=== PATIENT | male | born 1945 | race Caucasian/White ===

== ENCOUNTER 2017-08-20 10:59 | Inpatient (IN) ==
[2017-08-20 14:06] LABS: Basophils # 0.1 10*3/uL (0.0-0.2); Basophils % 0.6 % (0.0-0.8); Eosinophils # 0.6 10*3/uL (0.0-0.87); Eosinophils % 5.6 % (0.00-10.9); Hematocrit 38.7 VOL% (42.0-52.0); Hemoglobin 13.1 GM/DL (14.0-18.0); Immature Granulocytes % 0.6 %; Immature Granulocytes Absolute 0.06 #; Lymphocytes # 2.4 10*3/uL (1.4-4.0); Lymphocytes % 22.3 % (21.2-54.2); Mean Corpuscular HGB Conc 33.9 GM/DL (32-36); Mean Corpuscular Hemoglobin 31 PG (27-34); Mean Corpuscular Volume 92.6 FL (87-102); Mean Platelet Volume 10.6 FL (9.6-12.0); Monocytes # 0.9 10*3/uL (0.11-0.8); Monocytes % 8.1 % (1.7-12.7); Neutrophils # 6.8 10*3/uL (1.4-7.4); Neutrophils % 62.8 % (38.7-73.9); Platelet Count 278 T/CUMM (130-400); Red Blood Count 4.18 MC/CUMM (3.8-5.5); Red Cell Distribution Width 16.5 % (9.3-17.3); White Blood Count 10.8 T/CUMM (4-12)
[2017-08-20 14:31] LABS: Albumin 3.3 G/DL (3.4-5.0); Bilirubin,Total 0.9 MG/DL (0.2-1.0); Calcium 8.4 MG/DL (8.5-10.1); Osmolality,Calculated 283.3 MOS/KG (273-304); Total Protein 7.2 G/DL (6.4-8.3)
[2017-08-20 14:32] LABS: Troponin I Only < 0.015 NG/ML (0.00-0.045)
[2017-08-20] MEDS ORDERED: ALBUTEROL/IPRATROPIUM 3 ML NEB RESP TX STA (15:34)
[2017-08-20] MEDS ORDERED: FUROSEMIDE 40 MG/4 ML VIAL IV STA (15:34)
[2017-08-20] MEDS ORDERED: methylPREDNISolone SOD SUC 125 MG/2 ML VIAL IV STA (15:34)
[2017-08-20] MEDS ORDERED: methylPREDNISolone SOD SUC 125 MG/2 ML VIAL ONE (15:37)
[2017-08-20] MEDS ORDERED: FUROSEMIDE 40 MG/4 ML VIAL ONE (15:38)
[2017-08-20] MEDS ORDERED: ALBUTEROL/IPRATROPIUM 3 ML NEB RESP TX PRN (16:20)
[2017-08-20] MEDS ORDERED: INFLUENZA VIRUS VACCINE 0.5 ML SYRINGE IM ONE (16:55)
[2017-08-20] MEDS: oxyCODONE/ACETAMINOPHEN 5-325 MG TABLET PO PRN ×2 (17:40→21:26)
[2017-08-20] MEDS: LEVOFLOXACIN INJ 750 MG in PREMIX 1 EACH IV SCH (17:41)
[2017-08-20] MEDS: ENOXAPARIN 40 MG/0.4 ML SYRINGE SUBCUT SCH (17:41)
[2017-08-20] MEDS: ALBUTEROL/IPRATROPIUM 3 ML NEB RESP TX SCH (18:40)
[2017-08-20] MEDS: AMIODARONE 200 MG TABLET PO SCH (21:25)
[2017-08-20] MEDS: METOPROLOL TARTRATE 50 MG TABLET PO SCH (21:25)
[2017-08-20] MEDS: hydrALAZINE 25 MG TABLET PO SCH (21:25)
[2017-08-20] MEDS: methylPREDNISolone SOD SUC 40 MG/1 ML VIAL IV SCH (23:44)
[2017-08-21] MEDS: ALBUTEROL/IPRATROPIUM 3 ML NEB RESP TX SCH ×4 (00:28→19:19)
[2017-08-21 05:37] LABS: Basophils % 0.3 % (0.0-0.8); Hematocrit 37.2 VOL% (42.0-52.0); Hemoglobin 12.7 GM/DL (14.0-18.0); Immature Granulocytes % 0.5 %; Immature Granulocytes Absolute 0.03 #; Lymphocytes % 15.2 % (21.2-54.2); Mean Corpuscular HGB Conc 34.1 GM/DL (32-36); Mean Corpuscular Hemoglobin 31 PG (27-34); Monocytes # 0.1 10*3/uL (0.11-0.8); Monocytes % 1.2 % (1.7-12.7); Neutrophils # 5.5 10*3/uL (1.4-7.4); Neutrophils % 82.8 % (38.7-73.9); Platelet Count 258 T/CUMM (130-400); Red Blood Count 4.09 MC/CUMM (3.8-5.5); Red Cell Distribution Width 16.1 % (9.3-17.3); White Blood Count 6.7 T/CUMM (4-12)
[2017-08-21 06:05] LABS: Albumin 2.8 G/DL (3.4-5.0); Bilirubin,Total 0.9 MG/DL (0.2-1.0); Calcium 8.3 MG/DL (8.5-10.1); Magnesium 2.7 MG/DL (1.8-2.4); Osmolality,Calculated 288.3 MOS/KG (273-304); Phosphorous 4.7 MG/DL (2.5-4.9); Potassium 4.4 MMOL/L (3.5-5.1); Total Protein 6.4 G/DL (6.4-8.3)
[2017-08-21] MEDS: METOPROLOL TARTRATE 50 MG TABLET PO SCH (08:54)
[2017-08-21] MEDS: hydrALAZINE 25 MG TABLET PO SCH ×2 (08:55→21:36)
[2017-08-21] MEDS: ISOSORBIDE MONONITRATE 30 MG TABLET PO SCH (08:55)
[2017-08-21] MEDS: FUROSEMIDE 40 MG TABLET PO SCH (08:55)
[2017-08-21] MEDS: AMIODARONE 200 MG TABLET PO SCH ×2 (08:55→21:36)
[2017-08-21] MEDS: methylPREDNISolone SOD SUC 40 MG/1 ML VIAL IV SCH ×3 (08:56→23:57)
[2017-08-21] MEDS ORDERED: LISINOPRIL 10 MG TABLET PO SCH (09:00)
[2017-08-21] MEDS ORDERED: DILTIAZEM CD 120 MG CAPSULE PO SCH (09:00)
[2017-08-21] MEDS: CLOPIDOGREL 75 MG TABLET PO SCH (11:25)
[2017-08-21] MEDS: oxyCODONE/ACETAMINOPHEN 5-325 MG TABLET PO PRN (14:35)
[2017-08-21] MEDS: ENOXAPARIN 40 MG/0.4 ML SYRINGE SUBCUT SCH (15:55)
[2017-08-21] MEDS: LEVOFLOXACIN INJ 750 MG in PREMIX 1 EACH IV SCH (15:56)
[2017-08-21] MEDS: NICOTINE 14 MG/24 HR PATCH TRANSDERM SCH (18:08)
[2017-08-21] MEDS: SPIRONOLACTONE 25 MG TABLET PO SCH (18:10)
[2017-08-21] MEDS: LISINOPRIL 10 MG TABLET PO SCH (21:36)
[2017-08-21] MEDS: METOPROLOL SUCCINATE XL 25 MG TABLET PO SCH (21:36)
[2017-08-22] MEDS: ALBUTEROL/IPRATROPIUM 3 ML NEB RESP TX SCH ×4 (00:29→20:51)
[2017-08-22 04:58] LABS: Basophils % 0.1 % (0.0-0.8); Hematocrit 34.1 VOL% (42.0-52.0); Hemoglobin 11.6 GM/DL (14.0-18.0); Immature Granulocytes % 0.6 %; Immature Granulocytes Absolute 0.09 #; Lymphocytes # 1.2 10*3/uL (1.4-4.0); Mean Corpuscular Hemoglobin 31 PG (27-34); Mean Corpuscular Volume 91.7 FL (87-102); Monocytes # 0.4 10*3/uL (0.11-0.8); Monocytes % 2.6 % (1.7-12.7); Neutrophils # 13.6 10*3/uL (1.4-7.4); Neutrophils % 88.7 % (38.7-73.9); Platelet Count 272 T/CUMM (130-400); Red Blood Count 3.72 MC/CUMM (3.8-5.5); White Blood Count 15.3 T/CUMM (4-12)
[2017-08-22 05:41] LABS: Calcium 8.4 MG/DL (8.5-10.1); Magnesium 2.6 MG/DL (1.8-2.4); Osmolality,Calculated 292.3 MOS/KG (273-304); Potassium 4.3 MMOL/L (3.5-5.1); Risk Ratio 7.65; VLDL CHOLESTEROL 27.6 MG/DL
[2017-08-22] MEDS: oxyCODONE/ACETAMINOPHEN 5-325 MG TABLET PO PRN ×2 (06:10→14:52)
[2017-08-22] MEDS: NICOTINE 14 MG/24 HR PATCH TRANSDERM SCH (08:57)
[2017-08-22] MEDS: SPIRONOLACTONE 25 MG TABLET PO SCH (08:58)
[2017-08-22] MEDS: FUROSEMIDE 40 MG TABLET PO SCH (08:58)
[2017-08-22] MEDS: AMIODARONE 200 MG TABLET PO SCH ×2 (08:58→21:00)
[2017-08-22] MEDS: METOPROLOL SUCCINATE XL 25 MG TABLET PO SCH (08:58)
[2017-08-22] MEDS: ASPIRIN EC 81 MG TABLET PO SCH (08:59)
[2017-08-22] MEDS: ISOSORBIDE MONONITRATE 30 MG TABLET PO SCH (08:59)
[2017-08-22] MEDS: methylPREDNISolone SOD SUC 40 MG/1 ML VIAL IV SCH ×2 (08:59→16:48)
[2017-08-22] MEDS: CLOPIDOGREL 75 MG TABLET PO SCH (08:59)
[2017-08-22] MEDS: hydrALAZINE 25 MG TABLET PO SCH ×2 (08:59→21:00)
[2017-08-22] MEDS: LISINOPRIL 10 MG TABLET PO SCH ×2 (09:37→20:59)
[2017-08-22] MEDS: METOPROLOL SUCCINATE XL 50 MG TABLET PO SCH ×2 (14:52→21:00)
[2017-08-22] MEDS: ATORVASTATIN 40 MG TABLET PO SCH (14:52)
[2017-08-22] MEDS: ENOXAPARIN 40 MG/0.4 ML SYRINGE SUBCUT SCH (16:46)
[2017-08-22] MEDS: LEVOFLOXACIN INJ 750 MG in PREMIX 1 EACH IV SCH (16:48)
[2017-08-23] MEDS: methylPREDNISolone SOD SUC 40 MG/1 ML VIAL IV SCH ×3 (00:28→15:29)
[2017-08-23] MEDS: ALBUTEROL/IPRATROPIUM 3 ML NEB RESP TX SCH ×3 (01:15→13:48)
[2017-08-23 05:01] LABS: Basophils % 0.1 % (0.0-0.8); Hematocrit 34.6 VOL% (42.0-52.0); Hemoglobin 11.8 GM/DL (14.0-18.0); Immature Granulocytes % 0.8 %; Immature Granulocytes Absolute 0.12 #; Lymphocytes # 1.2 10*3/uL (1.4-4.0); Lymphocytes % 7.9 % (21.2-54.2); Mean Corpuscular HGB Conc 34.1 GM/DL (32-36); Mean Corpuscular Hemoglobin 31 PG (27-34); Mean Corpuscular Volume 91.5 FL (87-102); Mean Platelet Volume 10.2 FL (9.6-12.0); Monocytes # 0.5 10*3/uL (0.11-0.8); Monocytes % 3.1 % (1.7-12.7); Neutrophils # 13.5 10*3/uL (1.4-7.4); Neutrophils % 88.1 % (38.7-73.9); Platelet Count 278 T/CUMM (130-400); Red Blood Count 3.78 MC/CUMM (3.8-5.5); Red Cell Distribution Width 16.2 % (9.3-17.3); White Blood Count 15.3 T/CUMM (4-12)
[2017-08-23 05:29] LABS: Calcium 8.4 MG/DL (8.5-10.1); Magnesium 2.9 MG/DL (1.8-2.4); Osmolality,Calculated 293.1 MOS/KG (273-304); Potassium 4.5 MMOL/L (3.5-5.1)
[2017-08-23] MEDS: oxyCODONE/ACETAMINOPHEN 5-325 MG TABLET PO PRN (05:53)
[2017-08-23] MEDS: METOPROLOL SUCCINATE XL 50 MG TABLET PO SCH (09:39)
[2017-08-23] MEDS: hydrALAZINE 25 MG TABLET PO SCH (09:39)
[2017-08-23] MEDS: FUROSEMIDE 40 MG TABLET PO SCH (09:39)
[2017-08-23] MEDS: ATORVASTATIN 40 MG TABLET PO SCH (09:39)
[2017-08-23] MEDS: CLOPIDOGREL 75 MG TABLET PO SCH (09:39)
[2017-08-23] MEDS: AMIODARONE 200 MG TABLET PO SCH (09:40)
[2017-08-23] MEDS: ASPIRIN EC 81 MG TABLET PO SCH (09:40)
[2017-08-23] MEDS: LISINOPRIL 10 MG TABLET PO SCH (09:40)
[2017-08-23] MEDS: ISOSORBIDE MONONITRATE 30 MG TABLET PO SCH (09:40)
[2017-08-23] MEDS: NICOTINE 14 MG/24 HR PATCH TRANSDERM SCH (09:42)
[2017-08-23] MEDS ORDERED: SPIRONOLACTONE 25 MG TABLET PO SCH (10:15)
[2017-08-23 12:29] VITALS: BP 117/68
[2017-08-23] MEDS: LEVOFLOXACIN INJ 750 MG in PREMIX 1 EACH IV SCH (15:30)
== END 2017-08-23 16:12 | disposition home or self-care (01) | DRG 292 ==
LOC: N.ED 10:59 → N.EDINP 16:00 → N.TELES 16:24
PROVIDERS: ADMIT Internal Medicine; ATTEND Internal Medicine

== ENCOUNTER 2017-10-10 08:13 | Inpatient (IN) ==
[2017-10-10 08:50] LABS: Basophils # 0.1 10*3/uL (0.0-0.2); Basophils % 0.3 % (0.0-0.8); Hematocrit 39.2 VOL% (42.0-52.0); Hemoglobin 13.3 GM/DL (14.0-18.0); Immature Granulocytes % 0.4 %; Immature Granulocytes Absolute 0.07 #; Lymphocytes # 1.5 10*3/uL (1.4-4.0); Lymphocytes % 8.2 % (21.2-54.2); Mean Corpuscular HGB Conc 33.9 GM/DL (32-36); Mean Corpuscular Hemoglobin 32 PG (27-34); Mean Corpuscular Volume 93.8 FL (87-102); Mean Platelet Volume 9.9 FL (9.6-12.0); Monocytes # 1.2 10*3/uL (0.11-0.8); Monocytes % 6.4 % (1.7-12.7); Neutrophils # 15.2 10*3/uL (1.4-7.4); Neutrophils % 84.7 % (38.7-73.9); Platelet Count 383 T/CUMM (130-400); Red Blood Count 4.18 MC/CUMM (3.8-5.5); Red Cell Distribution Width 17.2 % (9.3-17.3); White Blood Count 17.9 T/CUMM (4-12)
[2017-10-10 08:56] LABS: PT Patient Result 10.9 SECS
[2017-10-10 09:13] LABS: Albumin 3.4 G/DL (3.4-5.0); Bilirubin,Total 1.2 MG/DL (0.2-1.0); Calcium 9.2 MG/DL (8.5-10.1); Osmolality,Calculated 281.4 MOS/KG (273-304); Potassium 4.1 MMOL/L (3.5-5.1); Total Protein 7.8 G/DL (6.4-8.3)
[2017-10-10] MEDS ORDERED: ceFAZolin 1,000 MG in SYRINGE 1 EACH IV ONE (09:24)
[2017-10-10] MEDS ORDERED: ceFAZolin 1,000 MG VIAL ONE (09:41)
[2017-10-10] MEDS ORDERED: MORPHINE 2 MG/1 ML SYRINGE IV PRN (11:04)
[2017-10-10] MEDS ORDERED: MIDAZOLAM 2 MG/2 ML VIAL ONE (11:49)
[2017-10-10] MEDS ORDERED: PROPOFOL 200 MG/20 ML VIAL IV ONE (11:50)
[2017-10-10] MEDS ORDERED: fentaNYL 100 MCG/2 ML VIAL ONE (11:50)
[2017-10-10] MEDS ORDERED: SODIUM CHLORIDE 0.9% 1,000 ML IV ONE (11:50)
[2017-10-10] MEDS: MORPHINE 2 MG/1 ML SYRINGE IV PRN ×3 (13:23→22:00)
[2017-10-10] MEDS: LEVOFLOXACIN INJ 750 MG in PREMIX 1 EACH IV SCH (18:10)
[2017-10-10] MEDS: NICOTINE 21 MG/24 HR PATCH TRANSDERM SCH (18:16)
[2017-10-10] MEDS: ALBUTEROL/IPRATROPIUM 3 ML NEB RESP TX SCH ×2 (20:32→23:15)
[2017-10-10] MEDS: LISINOPRIL 10 MG TABLET PO SCH (21:35)
[2017-10-10] MEDS: METOPROLOL SUCCINATE XL 50 MG TABLET PO SCH (21:35)
[2017-10-10] MEDS: AMIODARONE 200 MG TABLET PO SCH (21:35)
[2017-10-10] MEDS: hydrALAZINE 25 MG TABLET PO SCH (21:35)
[2017-10-10] MEDS ORDERED: TEMAZEPAM 15 MG CAPSULE PO ONE (22:00)
[2017-10-10 22:42] LABS: Apearance,Urine Slightly Hazy (Clear); Bilirubin,Urine Negative (Negative); Blood, Urine Negative (Negative); Glucose,Urine (UA) Negative (Negative); Ketones,Urine Negative (Negative); Mucus,Urine Occasional /LPF (Occasional); Nitrite,Urine Negative (Negative); Protein,Urine 30 MG/DL; RBC,Urine 1 /HPF (0-4); Urine Color Amber (Yellow); Urine Specific Gravity 1.025 (1.001-1.035); WBC,Urine 1 /HPF (0-6)
[2017-10-11] MEDS: MORPHINE 2 MG/1 ML SYRINGE IV PRN ×4 (01:23→21:26)
[2017-10-11] MEDS: ALBUTEROL/IPRATROPIUM 3 ML NEB RESP TX SCH ×6 (03:50→23:26)
[2017-10-11 05:19] LABS: Basophils % 0.2 % (0.0-0.8); Eosinophils # 0.2 10*3/uL (0.0-0.87); Eosinophils % 1.1 % (0.00-10.9); Hematocrit 31.9 VOL% (42.0-52.0); Hemoglobin 10.4 GM/DL (14.0-18.0); Immature Granulocytes % 0.6 %; Immature Granulocytes Absolute 0.09 #; Lymphocytes # 2.8 10*3/uL (1.4-4.0); Lymphocytes % 19.8 % (21.2-54.2); Mean Corpuscular HGB Conc 32.6 GM/DL (32-36); Mean Corpuscular Hemoglobin 31 PG (27-34); Mean Corpuscular Volume 96.4 FL (87-102); Mean Platelet Volume 10.3 FL (9.6-12.0); Monocytes # 1.3 10*3/uL (0.11-0.8); Monocytes % 9.5 % (1.7-12.7); Neutrophils # 9.7 10*3/uL (1.4-7.4); Neutrophils % 68.8 % (38.7-73.9); Platelet Count 251 T/CUMM (130-400); Red Blood Count 3.31 MC/CUMM (3.8-5.5); Red Cell Distribution Width 16.8 % (9.3-17.3); White Blood Count 14.1 T/CUMM (4-12)
[2017-10-11 05:54] LABS: Osmolality,Calculated 282.1 MOS/KG (273-304); Potassium 3.8 MMOL/L (3.5-5.1)
[2017-10-11] MEDS ORDERED: predniSONE 50 MG TABLET PO SCH (09:00)
[2017-10-11] MEDS: FUROSEMIDE 40 MG TABLET PO SCH (09:27)
[2017-10-11] MEDS: NICOTINE 21 MG/24 HR PATCH TRANSDERM SCH (09:27)
[2017-10-11] MEDS: ISOSORBIDE MONONITRATE 30 MG TABLET PO SCH (09:28)
[2017-10-11] MEDS: ASPIRIN EC 81 MG TABLET PO SCH (09:28)
[2017-10-11] MEDS: METOPROLOL SUCCINATE XL 50 MG TABLET PO SCH ×2 (09:28→21:21)
[2017-10-11] MEDS: ATORVASTATIN 40 MG TABLET PO SCH (09:28)
[2017-10-11] MEDS: hydrALAZINE 25 MG TABLET PO SCH ×2 (09:28→21:21)
[2017-10-11] MEDS: CLOPIDOGREL 75 MG TABLET PO SCH (09:28)
[2017-10-11] MEDS: LISINOPRIL 10 MG TABLET PO SCH ×2 (09:28→21:21)
[2017-10-11] MEDS: SPIRONOLACTONE 25 MG TABLET PO SCH (09:28)
[2017-10-11] MEDS: AMIODARONE 200 MG TABLET PO SCH ×2 (09:28→21:21)
[2017-10-11] MEDS ORDERED: AMINOPHYLLINE 250 MG in SODIUM CHLORIDE 0.9% 100 ML IV ONE (12:41)
[2017-10-11] MEDS: MONTELUKAST 10 MG TABLET PO SCH (12:59)
[2017-10-11] MEDS: AMINOPHYLLINE 500 MG in SODIUM CHLORIDE 0.9% 480 ML IV SCH (16:33)
[2017-10-11] MEDS: methylPREDNISolone SOD SUC 40 MG/1 ML VIAL IV SCH (16:33)
[2017-10-11] MEDS: LEVOFLOXACIN INJ 750 MG in PREMIX 1 EACH IV SCH (18:05)
[2017-10-12] MEDS: ALBUTEROL/IPRATROPIUM 3 ML NEB RESP TX SCH ×5 (02:49→20:28)
[2017-10-12] MEDS: methylPREDNISolone SOD SUC 40 MG/1 ML VIAL IV SCH ×2 (05:47→16:58)
[2017-10-12 06:22] LABS: Basophils % 0.1 % (0.0-0.8); Hematocrit 32.7 VOL% (42.0-52.0); Hemoglobin 10.7 GM/DL (14.0-18.0); Immature Granulocytes % 0.7 %; Immature Granulocytes Absolute 0.12 #; Lymphocytes # 1.1 10*3/uL (1.4-4.0); Lymphocytes % 6.1 % (21.2-54.2); Mean Corpuscular HGB Conc 32.7 GM/DL (32-36); Mean Corpuscular Hemoglobin 32 PG (27-34); Mean Corpuscular Volume 96.2 FL (87-102); Mean Platelet Volume 10.6 FL (9.6-12.0); Monocytes % 5.7 % (1.7-12.7); Neutrophils # 15.2 10*3/uL (1.4-7.4); Neutrophils % 87.4 % (38.7-73.9); Platelet Count 286 T/CUMM (130-400); Red Cell Distribution Width 16.6 % (9.3-17.3); White Blood Count 17.4 T/CUMM (4-12)
[2017-10-12 06:53] LABS: Calcium 8.7 MG/DL (8.5-10.1); Osmolality,Calculated 286.1 MOS/KG (273-304); Potassium 3.7 MMOL/L (3.5-5.1)
[2017-10-12] MEDS: NICOTINE 21 MG/24 HR PATCH TRANSDERM SCH (09:19)
[2017-10-12] MEDS: AMIODARONE 200 MG TABLET PO SCH ×2 (09:20→21:55)
[2017-10-12] MEDS: ATORVASTATIN 40 MG TABLET PO SCH (09:20)
[2017-10-12] MEDS: CLOPIDOGREL 75 MG TABLET PO SCH (09:20)
[2017-10-12] MEDS: ISOSORBIDE MONONITRATE 30 MG TABLET PO SCH (09:20)
[2017-10-12] MEDS: FUROSEMIDE 40 MG TABLET PO SCH (09:20)
[2017-10-12] MEDS: SPIRONOLACTONE 25 MG TABLET PO SCH (09:20)
[2017-10-12] MEDS: ASPIRIN EC 81 MG TABLET PO SCH (09:20)
[2017-10-12] MEDS: MONTELUKAST 10 MG TABLET PO SCH (09:20)
[2017-10-12] MEDS: hydrALAZINE 25 MG TABLET PO SCH ×2 (09:20→21:57)
[2017-10-12] MEDS: METOPROLOL SUCCINATE XL 50 MG TABLET PO SCH ×2 (09:21→21:57)
[2017-10-12] MEDS: LISINOPRIL 10 MG TABLET PO SCH ×2 (09:21→21:57)
[2017-10-12] MEDS: MORPHINE 2 MG/1 ML SYRINGE IV PRN ×4 (10:05→21:55)
[2017-10-12] MEDS: AZITHROMYCIN INJ 500 MG in SODIUM CHLORIDE 0.9% 250 ML IV SCH (16:58)
[2017-10-12] MEDS: AMINOPHYLLINE 500 MG in SODIUM CHLORIDE 0.9% 480 ML IV SCH (16:58)
[2017-10-12] MEDS: cefTRIAXone 2,000 MG in SYRINGE 1 EACH IV SCH (17:44)
[2017-10-13] MEDS: ALBUTEROL/IPRATROPIUM 3 ML NEB RESP TX SCH ×6 (00:17→19:45)
[2017-10-13] MEDS: methylPREDNISolone SOD SUC 40 MG/1 ML VIAL IV SCH ×2 (04:11→16:29)
[2017-10-13 05:15] LABS: Basophils % 0.1 % (0.0-0.8); Hematocrit 29.6 VOL% (42.0-52.0); Hemoglobin 9.4 GM/DL (14.0-18.0); Immature Granulocytes % 1.7 %; Immature Granulocytes Absolute 0.38 #; Lymphocytes # 1.3 10*3/uL (1.4-4.0); Lymphocytes % 5.6 % (21.2-54.2); Mean Corpuscular HGB Conc 31.8 GM/DL (32-36); Mean Corpuscular Hemoglobin 31 PG (27-34); Mean Corpuscular Volume 96.7 FL (87-102); Mean Platelet Volume 10.7 FL (9.6-12.0); Monocytes # 0.9 10*3/uL (0.11-0.8); Monocytes % 3.9 % (1.7-12.7); Neutrophils # 19.8 10*3/uL (1.4-7.4); Neutrophils % 88.7 % (38.7-73.9); Platelet Count 307 T/CUMM (130-400); Red Blood Count 3.06 MC/CUMM (3.8-5.5); Red Cell Distribution Width 17.1 % (9.3-17.3); White Blood Count 22.4 T/CUMM (4-12)
[2017-10-13 05:44] LABS: Calcium 8.4 MG/DL (8.5-10.1); Potassium 4.3 MMOL/L (3.5-5.1)
[2017-10-13 05:49] LABS: Band Neutrophils 1 % (0-10); Giant Platelets Few; Hypochromasia 1+; Lymphocytes 5 % (20-55); Ovalocytes Slight; Platelet Estimate Adequate; Segmented Neutrophils 87 % (50-85); Total Cells Counted 100
[2017-10-13] MEDS: AMIODARONE 200 MG TABLET PO SCH ×2 (09:38→21:48)
[2017-10-13] MEDS: ISOSORBIDE MONONITRATE 30 MG TABLET PO SCH (09:38)
[2017-10-13] MEDS: ATORVASTATIN 40 MG TABLET PO SCH (09:39)
[2017-10-13] MEDS: MONTELUKAST 10 MG TABLET PO SCH (09:39)
[2017-10-13] MEDS: FUROSEMIDE 40 MG TABLET PO SCH (09:40)
[2017-10-13] MEDS: CLOPIDOGREL 75 MG TABLET PO SCH (09:40)
[2017-10-13] MEDS: SPIRONOLACTONE 25 MG TABLET PO SCH (09:40)
[2017-10-13] MEDS: ASPIRIN EC 81 MG TABLET PO SCH (09:45)
[2017-10-13] MEDS: NICOTINE 21 MG/24 HR PATCH TRANSDERM SCH (09:47)
[2017-10-13] MEDS: hydrALAZINE 25 MG TABLET PO SCH ×2 (11:24→21:49)
[2017-10-13] MEDS: METOPROLOL SUCCINATE XL 50 MG TABLET PO SCH ×2 (11:24→21:49)
[2017-10-13] MEDS: LISINOPRIL 10 MG TABLET PO SCH ×2 (11:24→21:49)
[2017-10-13] MEDS: AZITHROMYCIN INJ 500 MG in SODIUM CHLORIDE 0.9% 250 ML IV SCH (16:46)
[2017-10-14] MEDS: ALBUTEROL/IPRATROPIUM 3 ML NEB RESP TX SCH ×6 (00:15→19:43)
[2017-10-14] MEDS: cefTRIAXone 2,000 MG in SYRINGE 1 EACH IV SCH (00:53)
[2017-10-14] MEDS: AMINOPHYLLINE 500 MG in SODIUM CHLORIDE 0.9% 480 ML IV SCH (00:53)
[2017-10-14 05:29] LABS: Basophils % 0.1 % (0.0-0.8); Hematocrit 30.1 VOL% (42.0-52.0); Immature Granulocytes % 1.2 %; Immature Granulocytes Absolute 0.22 #; Lymphocytes # 1.4 10*3/uL (1.4-4.0); Lymphocytes % 7.5 % (21.2-54.2); Mean Corpuscular HGB Conc 33.2 GM/DL (32-36); Mean Corpuscular Hemoglobin 32 PG (27-34); Mean Corpuscular Volume 95.6 FL (87-102); Mean Platelet Volume 10.2 FL (9.6-12.0); Monocytes # 0.7 10*3/uL (0.11-0.8); Monocytes % 3.6 % (1.7-12.7); Neutrophils # 16.3 10*3/uL (1.4-7.4); Neutrophils % 87.6 % (38.7-73.9); Platelet Count 343 T/CUMM (130-400); Red Blood Count 3.15 MC/CUMM (3.8-5.5); White Blood Count 18.6 T/CUMM (4-12)
[2017-10-14] MEDS: methylPREDNISolone SOD SUC 40 MG/1 ML VIAL IV SCH ×2 (05:29→16:08)
[2017-10-14 05:58] LABS: Calcium 8.1 MG/DL (8.5-10.1); Osmolality,Calculated 295.1 MOS/KG (273-304); Potassium 4.7 MMOL/L (3.5-5.1)
[2017-10-14] MEDS: ASPIRIN EC 81 MG TABLET PO SCH (09:43)
[2017-10-14] MEDS: METOPROLOL SUCCINATE XL 50 MG TABLET PO SCH ×2 (09:43→21:59)
[2017-10-14] MEDS: LISINOPRIL 10 MG TABLET PO SCH (09:43)
[2017-10-14] MEDS: FUROSEMIDE 40 MG TABLET PO SCH (09:44)
[2017-10-14] MEDS: SPIRONOLACTONE 25 MG TABLET PO SCH (09:44)
[2017-10-14] MEDS: hydrALAZINE 25 MG TABLET PO SCH (09:44)
[2017-10-14] MEDS: AMIODARONE 200 MG TABLET PO SCH ×2 (09:45→21:59)
[2017-10-14] MEDS: ATORVASTATIN 40 MG TABLET PO SCH (09:45)
[2017-10-14] MEDS: ISOSORBIDE MONONITRATE 30 MG TABLET PO SCH (09:45)
[2017-10-14] MEDS: CLOPIDOGREL 75 MG TABLET PO SCH (09:45)
[2017-10-14] MEDS: MONTELUKAST 10 MG TABLET PO SCH (09:46)
[2017-10-14] MEDS: NICOTINE 21 MG/24 HR PATCH TRANSDERM SCH (09:47)
[2017-10-14] MEDS: MORPHINE 2 MG/1 ML SYRINGE IV PRN (11:47)
[2017-10-14] MEDS: THEOPHYLLINE ER (24 HR) 200 MG CAPSULE PO SCH (11:54)
[2017-10-14] MEDS: AZITHROMYCIN INJ 500 MG in SODIUM CHLORIDE 0.9% 250 ML IV SCH (16:17)
[2017-10-14] MEDS: BACITRACIN OINT 0.9 GM PACK TOP SCH (21:26)
[2017-10-15] MEDS: cefTRIAXone 2,000 MG in SYRINGE 1 EACH IV SCH ×2 (00:05→21:46)
[2017-10-15] MEDS: ALBUTEROL/IPRATROPIUM 3 ML NEB RESP TX SCH ×7 (00:15→23:59)
[2017-10-15] MEDS: methylPREDNISolone SOD SUC 40 MG/1 ML VIAL IV SCH ×2 (05:17→15:56)
[2017-10-15] MEDS: hydrALAZINE 25 MG TABLET PO SCH ×2 (05:36→11:02)
[2017-10-15] MEDS: LISINOPRIL 10 MG TABLET PO SCH ×2 (05:36→11:01)
[2017-10-15] MEDS ORDERED: MAGNESIUM HYDROXIDE SUSP 30 ML UDCUP PO ONE (10:07)
[2017-10-15] MEDS ORDERED: MAGNESIUM HYDROXIDE SUSP 30 ML UDCUP PO PRN (10:07)
[2017-10-15] MEDS: ATORVASTATIN 40 MG TABLET PO SCH (11:01)
[2017-10-15] MEDS: AMIODARONE 200 MG TABLET PO SCH ×2 (11:01→21:46)
[2017-10-15] MEDS: ISOSORBIDE MONONITRATE 30 MG TABLET PO SCH (11:02)
[2017-10-15] MEDS: MONTELUKAST 10 MG TABLET PO SCH (11:02)
[2017-10-15] MEDS: FUROSEMIDE 40 MG TABLET PO SCH (11:03)
[2017-10-15] MEDS: CLOPIDOGREL 75 MG TABLET PO SCH (11:03)
[2017-10-15] MEDS: METOPROLOL SUCCINATE XL 50 MG TABLET PO SCH ×2 (11:03→21:46)
[2017-10-15] MEDS: ASPIRIN EC 81 MG TABLET PO SCH (11:03)
[2017-10-15] MEDS: THEOPHYLLINE ER (24 HR) 200 MG CAPSULE PO SCH (11:04)
[2017-10-15] MEDS: NICOTINE 21 MG/24 HR PATCH TRANSDERM SCH (11:05)
[2017-10-15] MEDS: BACITRACIN OINT 0.9 GM PACK TOP SCH ×2 (11:07→13:27)
[2017-10-15] MEDS: SPIRONOLACTONE 25 MG TABLET PO SCH (11:09)
[2017-10-15] MEDS ORDERED: TUBERCULIN SKIN TEST 0.1 ML SYRINGE INTRADERM ONE (15:00)
[2017-10-15] MEDS: MORPHINE 2 MG/1 ML SYRINGE IV PRN (15:47)
[2017-10-15] MEDS: AZITHROMYCIN INJ 500 MG in SODIUM CHLORIDE 0.9% 250 ML IV SCH (16:00)
[2017-10-16] MEDS: ALBUTEROL/IPRATROPIUM 3 ML NEB RESP TX SCH ×2 (03:00→09:00)
[2017-10-16] MEDS: methylPREDNISolone SOD SUC 40 MG/1 ML VIAL IV SCH (04:54)
[2017-10-16] MEDS: hydrALAZINE 25 MG TABLET PO SCH ×2 (04:54→09:25)
[2017-10-16] MEDS: LISINOPRIL 10 MG TABLET PO SCH ×2 (04:54→09:25)
[2017-10-16 09:18] LABS: Basophils % 0.1 % (0.0-0.8); Hematocrit 33.6 VOL% (42.0-52.0); Hemoglobin 10.8 GM/DL (14.0-18.0); Immature Granulocytes % 1.5 %; Lymphocytes # 2.1 10*3/uL (1.4-4.0); Lymphocytes % 10.6 % (21.2-54.2); Mean Corpuscular HGB Conc 32.1 GM/DL (32-36); Mean Corpuscular Hemoglobin 31 PG (27-34); Mean Corpuscular Volume 97.4 FL (87-102); Mean Platelet Volume 10.4 FL (9.6-12.0); Monocytes # 1.1 10*3/uL (0.11-0.8); Monocytes % 5.3 % (1.7-12.7); Neutrophils # 16.7 10*3/uL (1.4-7.4); Neutrophils % 82.5 % (38.7-73.9); Platelet Count 399 T/CUMM (130-400); Red Blood Count 3.45 MC/CUMM (3.8-5.5); Red Cell Distribution Width 16.7 % (9.3-17.3); White Blood Count 20.3 T/CUMM (4-12)
[2017-10-16] MEDS: AMIODARONE 200 MG TABLET PO SCH (09:24)
[2017-10-16] MEDS: FUROSEMIDE 40 MG TABLET PO SCH (09:24)
[2017-10-16] MEDS: SPIRONOLACTONE 25 MG TABLET PO SCH (09:24)
[2017-10-16] MEDS: CLOPIDOGREL 75 MG TABLET PO SCH (09:25)
[2017-10-16] MEDS: BACITRACIN OINT 0.9 GM PACK TOP SCH (09:25)
[2017-10-16] MEDS: METOPROLOL SUCCINATE XL 50 MG TABLET PO SCH (09:25)
[2017-10-16] MEDS: ATORVASTATIN 40 MG TABLET PO SCH (09:25)
[2017-10-16] MEDS: ASPIRIN EC 81 MG TABLET PO SCH (09:25)
[2017-10-16] MEDS: NICOTINE 21 MG/24 HR PATCH TRANSDERM SCH (09:25)
[2017-10-16] MEDS: MONTELUKAST 10 MG TABLET PO SCH (09:25)
[2017-10-16] MEDS: ISOSORBIDE MONONITRATE 30 MG TABLET PO SCH (09:25)
[2017-10-16 09:27] LABS: Calcium 8.3 MG/DL (8.5-10.1); Osmolality,Calculated 292.3 MOS/KG (273-304); Potassium 4.9 MMOL/L (3.5-5.1)
[2017-10-16 09:45] LABS: Giant Platelets Few; Hypochromasia 1+; Ovalocytes Slight; Platelet Estimate Adequate
[2017-10-16] MEDS: THEOPHYLLINE ER (24 HR) 200 MG CAPSULE PO SCH (11:00)
[2017-10-16 11:41] VITALS: BP 120/77
== END 2017-10-16 13:05 | disposition swing bed (61) | DRG 200 ==
LOC: N.ED 08:13 → N.3E 11:56 → SUATTDRO 11:56
PROVIDERS: ADMIT Hospitalist; ATTEND Internal Medicine Cardiovascular Disease

== ENCOUNTER 2017-10-30 13:25 | Observation (INO) ==
[2017-10-30 15:02] LABS: Basophils % 0.2 % (0.0-0.8); Eosinophils # 0.2 10*3/uL (0.0-0.87); Eosinophils % 1.1 % (0.00-10.9); Hematocrit 37.6 VOL% (42.0-52.0); Immature Granulocytes % 0.6 %; Immature Granulocytes Absolute 0.09 #; Lymphocytes # 2.9 10*3/uL (1.4-4.0); Lymphocytes % 18.4 % (21.2-54.2); Mean Corpuscular HGB Conc 31.9 GM/DL (32-36); Mean Corpuscular Hemoglobin 30 PG (27-34); Mean Corpuscular Volume 95.2 FL (87-102); Mean Platelet Volume 9.7 FL (9.6-12.0); Monocytes # 0.7 10*3/uL (0.11-0.8); Monocytes % 4.6 % (1.7-12.7); Neutrophils % 75.1 % (38.7-73.9); Platelet Count 353 T/CUMM (130-400); Red Blood Count 3.95 MC/CUMM (3.8-5.5); Red Cell Distribution Width 15.8 % (9.3-17.3); White Blood Count 15.9 T/CUMM (4-12)
[2017-10-30 15:22] LABS: Calcium 8.6 MG/DL (8.5-10.1); Osmolality,Calculated 286.4 MOS/KG (273-304)
[2017-10-30] MEDS ORDERED: NICOTINE 21 MG/24 HR PATCH TRANSDERM PRN (16:49)
[2017-10-30] MEDS ORDERED: MAGNESIUM HYDROXIDE SUSP 30 ML UDCUP PO PRN (16:51)
[2017-10-30] MEDS ORDERED: INFLUENZA VIRUS VACCINE 0.5 ML SYRINGE IM ONE (19:45)
[2017-10-30] MEDS: ALBUTEROL/IPRATROPIUM 3 ML NEB RESP TX SCH (20:30)
[2017-10-30] MEDS: METOPROLOL SUCCINATE XL 50 MG TABLET PO SCH (20:42)
[2017-10-30] MEDS: LISINOPRIL 10 MG TABLET PO SCH (20:42)
[2017-10-30] MEDS: hydrALAZINE 25 MG TABLET PO SCH (20:42)
[2017-10-30] MEDS: AMIODARONE 200 MG TABLET PO SCH (20:43)
[2017-10-30] MEDS: ENOXAPARIN 40 MG/0.4 ML SYRINGE SUBCUT SCH (20:48)
[2017-10-31] MEDS: ALBUTEROL/IPRATROPIUM 3 ML NEB RESP TX SCH ×6 (00:17→20:16)
[2017-10-31 06:20] LABS: Basophils % 0.3 % (0.0-0.8); Eosinophils # 0.2 10*3/uL (0.0-0.87); Eosinophils % 1.5 % (0.00-10.9); Hematocrit 32.9 VOL% (42.0-52.0); Hemoglobin 10.6 GM/DL (14.0-18.0); Immature Granulocytes % 0.6 %; Immature Granulocytes Absolute 0.08 #; Lymphocytes # 2.9 10*3/uL (1.4-4.0); Lymphocytes % 20.5 % (21.2-54.2); Mean Corpuscular HGB Conc 32.2 GM/DL (32-36); Mean Corpuscular Hemoglobin 30 PG (27-34); Mean Corpuscular Volume 94.3 FL (87-102); Mean Platelet Volume 9.9 FL (9.6-12.0); Monocytes # 0.7 10*3/uL (0.11-0.8); Monocytes % 4.7 % (1.7-12.7); Neutrophils # 10.2 10*3/uL (1.4-7.4); Neutrophils % 72.4 % (38.7-73.9); Platelet Count 277 T/CUMM (130-400); Red Blood Count 3.49 MC/CUMM (3.8-5.5); Red Cell Distribution Width 15.8 % (9.3-17.3)
[2017-10-31 06:44] LABS: Albumin 2.6 G/DL (3.4-5.0); Bilirubin,Total 0.9 MG/DL (0.2-1.0); Calcium 7.7 MG/DL (8.5-10.1); Osmolality,Calculated 283.4 MOS/KG (273-304); Potassium 4.7 MMOL/L (3.5-5.1); Total Protein 5.5 G/DL (6.4-8.3)
[2017-10-31] MEDS: LISINOPRIL 10 MG TABLET PO SCH ×2 (08:52→20:36)
[2017-10-31] MEDS: hydrALAZINE 25 MG TABLET PO SCH ×2 (08:52→20:36)
[2017-10-31] MEDS: ISOSORBIDE MONONITRATE 30 MG TABLET PO SCH (08:52)
[2017-10-31] MEDS: ATORVASTATIN 40 MG TABLET PO SCH (08:52)
[2017-10-31] MEDS: ASPIRIN EC 81 MG TABLET PO SCH (08:53)
[2017-10-31] MEDS: FUROSEMIDE 40 MG TABLET PO SCH (08:53)
[2017-10-31] MEDS: METOPROLOL SUCCINATE XL 50 MG TABLET PO SCH ×2 (08:53→20:36)
[2017-10-31] MEDS: CLOPIDOGREL 75 MG TABLET PO SCH (08:53)
[2017-10-31] MEDS: SPIRONOLACTONE 25 MG TABLET PO SCH (08:53)
[2017-10-31] MEDS: AMIODARONE 200 MG TABLET PO SCH ×2 (08:53→20:36)
[2017-10-31] MEDS ORDERED: predniSONE 50 MG TABLET PO SCH (09:00)
[2017-10-31] MEDS: ENOXAPARIN 40 MG/0.4 ML SYRINGE SUBCUT SCH (20:36)
[2017-11-01] MEDS: ALBUTEROL/IPRATROPIUM 3 ML NEB RESP TX SCH ×4 (00:18→11:00)
[2017-11-01 05:33] LABS: Basophils % 0.1 % (0.0-0.8); Eosinophils % 0.1 % (0.00-10.9); Hematocrit 32.2 VOL% (42.0-52.0); Hemoglobin 10.7 GM/DL (14.0-18.0); Immature Granulocytes % 0.6 %; Immature Granulocytes Absolute 0.09 #; Lymphocytes # 2.2 10*3/uL (1.4-4.0); Lymphocytes % 13.6 % (21.2-54.2); Mean Corpuscular HGB Conc 33.2 GM/DL (32-36); Mean Corpuscular Hemoglobin 31 PG (27-34); Mean Corpuscular Volume 93.1 FL (87-102); Mean Platelet Volume 9.8 FL (9.6-12.0); Monocytes # 0.8 10*3/uL (0.11-0.8); Monocytes % 4.6 % (1.7-12.7); Neutrophils # 13.2 10*3/uL (1.4-7.4); Platelet Count 266 T/CUMM (130-400); Red Blood Count 3.46 MC/CUMM (3.8-5.5); Red Cell Distribution Width 15.7 % (9.3-17.3); White Blood Count 16.3 T/CUMM (4-12)
[2017-11-01 06:08] LABS: Calcium 7.5 MG/DL (8.5-10.1); Potassium 4.3 MMOL/L (3.5-5.1)
[2017-11-01] MEDS: SPIRONOLACTONE 25 MG TABLET PO SCH (08:20)
[2017-11-01] MEDS: ISOSORBIDE MONONITRATE 30 MG TABLET PO SCH (08:21)
[2017-11-01] MEDS: ASPIRIN EC 81 MG TABLET PO SCH (08:21)
[2017-11-01] MEDS: hydrALAZINE 25 MG TABLET PO SCH (08:22)
[2017-11-01] MEDS: FUROSEMIDE 40 MG TABLET PO SCH (08:22)
[2017-11-01] MEDS: CLOPIDOGREL 75 MG TABLET PO SCH (08:22)
[2017-11-01] MEDS: METOPROLOL SUCCINATE XL 50 MG TABLET PO SCH (08:23)
[2017-11-01] MEDS: ATORVASTATIN 40 MG TABLET PO SCH (08:23)
[2017-11-01] MEDS: AMIODARONE 200 MG TABLET PO SCH (08:23)
[2017-11-01] MEDS: LISINOPRIL 10 MG TABLET PO SCH (08:24)
[2017-11-01] MEDS ORDERED: predniSONE 20 MG TABLET PO SCH (09:00)
[2017-11-01 11:31] VITALS: BP 116/67
== END 2017-11-01 14:40 | disposition home or self-care (01) ==
LOC: N.EDINP 13:25 → N.ED 13:25 → N.2E 18:56
PROVIDERS: ADMIT Internal Medicine; ATTEND Internal Medicine

== ENCOUNTER 2018-09-04 09:11 | Observation (INO) ==
[2018-09-04] MEDS ORDERED: ACETAMINOPHEN 325 MG TABLET PO PRN (13:38)
[2018-09-04] MEDS ORDERED: DOCUSATE SODIUM 100 MG CAPSULE PO PRN (13:38)
[2018-09-04] MEDS ORDERED: NICOTINE 21 MG/24 HR PATCH TRANSDERM PRN (13:38)
[2018-09-04] MEDS ORDERED: ONDANSETRON 4 MG/2 ML VIAL IV PRN (13:38)
[2018-09-04] MEDS ORDERED: LACTULOSE 20 GM/30 ML UDCUP PO PRN (13:38)
[2018-09-04 13:48] LABS: Apearance,Urine CLEAR (Clear); Bilirubin,Urine Negative (Negative); Blood, Urine Moderate mg/dL (Negative); Glucose,Urine (UA) Negative (Negative); Ketones,Urine Negative (Negative); Nitrite,Urine Negative (Negative); Protein,Urine Negative; RBC,Urine <1 /HPF (0-4); Urine Color Yellow (Yellow); Urine Specific Gravity 1.009 (1.001-1.035); Urine Urobilinogen < 2.0 EU/DL (0.2-1.0); WBC,Urine <1 /HPF (0-6)
[2018-09-04] MEDS ORDERED: ENOXAPARIN 40 MG/0.4 ML SYRINGE SUBCUT SCH (14:00)
[2018-09-04 14:45] LABS: Basophils # 0.1 10*3/uL (0.0-0.2); Basophils % 0.5 % (0.0-0.8); Eosinophils # 0.2 10*3/uL (0.0-0.87); Eosinophils % 1.3 % (0.00-10.9); Hematocrit 35.4 VOL% (42.0-52.0); Hemoglobin 10.9 GM/DL (14.0-18.0); Immature Granulocytes % 0.7 %; Immature Granulocytes Absolute 0.13 #; Lymphocytes # 3.4 10*3/uL (1.4-4.0); Lymphocytes % 19.4 % (21.2-54.2); Mean Corpuscular HGB Conc 30.8 GM/DL (32-36); Mean Corpuscular Hemoglobin 30 PG (27-34); Mean Corpuscular Volume 97.5 FL (87-102); Mean Platelet Volume 9.8 FL (9.6-12.0); Monocytes # 1.5 10*3/uL (0.11-0.8); Monocytes % 8.8 % (1.7-12.7); Neutrophils # 12.2 10*3/uL (1.4-7.4); Neutrophils % 69.3 % (38.7-73.9); Platelet Count 351 T/CUMM (130-400); Red Blood Count 3.63 MC/CUMM (3.8-5.5); Red Cell Distribution Width 15.2 % (9.3-17.3); White Blood Count 17.6 T/CUMM (4-12)
[2018-09-04 14:57] LABS: Calcium 8.4 MG/DL (8.5-10.1); Potassium 5.1 MMOL/L (3.5-5.1)
[2018-09-04] MEDS: FUROSEMIDE 40 MG TABLET PO SCH (20:55)
[2018-09-04] MEDS: POTASSIUM CHLORIDE 20 MEQ TABLET PO SCH (20:56)
[2018-09-04] MEDS: APIXABAN 5 MG TABLET PO SCH (20:56)
[2018-09-04] MEDS: traZODone 50 MG TABLET PO SCH (20:56)
[2018-09-05 04:59] LABS: Basophils # 0.1 10*3/uL (0.0-0.2); Basophils % 0.4 % (0.0-0.8); Eosinophils # 0.3 10*3/uL (0.0-0.87); Eosinophils % 1.3 % (0.00-10.9); Hematocrit 33.7 VOL% (42.0-52.0); Hemoglobin 10.8 GM/DL (14.0-18.0); Immature Granulocytes % 0.6 %; Immature Granulocytes Absolute 0.12 #; Lymphocytes # 3.7 10*3/uL (1.4-4.0); Lymphocytes % 18.2 % (21.2-54.2); Mean Corpuscular Hemoglobin 31 PG (27-34); Mean Corpuscular Volume 95.5 FL (87-102); Mean Platelet Volume 9.6 FL (9.6-12.0); Monocytes # 1.4 10*3/uL (0.11-0.8); Monocytes % 6.9 % (1.7-12.7); Neutrophils # 14.7 10*3/uL (1.4-7.4); Neutrophils % 72.6 % (38.7-73.9); Platelet Count 363 T/CUMM (130-400); Red Blood Count 3.53 MC/CUMM (3.8-5.5); Red Cell Distribution Width 15.1 % (9.3-17.3); White Blood Count 20.2 T/CUMM (4-12)
[2018-09-05 05:43] LABS: Eosinophils 1 % (0-10); Hypochromasia Slight; Lymphocytes 12 % (20-55); Platelet Estimate Normal; Segmented Neutrophils 82 % (50-85); Total Cells Counted 100
[2018-09-05 05:49] LABS: Calcium 8.4 MG/DL (8.5-10.1); Osmolality,Calculated 275.1 MOS/KG (273-304); Potassium 4.5 MMOL/L (3.5-5.1); Thyroid Stimulating Hormone 3.57 uIU/ml (0.358-3.74)
[2018-09-05 06:30] LABS: % Iron Saturation 11.8 % (18-50)
[2018-09-05] MEDS: POTASSIUM CHLORIDE 20 MEQ TABLET PO SCH ×2 (09:41→21:32)
[2018-09-05] MEDS: APIXABAN 5 MG TABLET PO SCH ×2 (09:41→21:32)
[2018-09-05] MEDS: FUROSEMIDE 40 MG TABLET PO SCH ×2 (09:41→21:32)
[2018-09-05] MEDS: PANTOPRAZOLE 40 MG TABLET PO SCH (09:41)
[2018-09-05] MEDS: LOSARTAN 25 MG TABLET PO SCH (09:41)
[2018-09-05] MEDS: AMIODARONE 200 MG TABLET PO SCH (09:41)
[2018-09-05] MEDS: IPRATROPIUM 500 MCG/2.5 ML NEB RESP TX SCH ×4 (10:41→19:09)
[2018-09-05] MEDS: DIGOXIN 0.125 MG TABLET PO SCH (12:43)
[2018-09-05] MEDS: traZODone 50 MG TABLET PO SCH (21:32)
[2018-09-06 07:12] LABS: Basophils # 0.1 10*3/uL (0.0-0.2); Basophils % 0.4 % (0.0-0.8); Eosinophils # 0.3 10*3/uL (0.0-0.87); Eosinophils % 1.7 % (0.00-10.9); Hematocrit 36.5 VOL% (42.0-52.0); Hemoglobin 11.4 GM/DL (14.0-18.0); Immature Granulocytes % 0.7 %; Immature Granulocytes Absolute 0.11 #; Lymphocytes # 3.4 10*3/uL (1.4-4.0); Lymphocytes % 20.9 % (21.2-54.2); Mean Corpuscular HGB Conc 31.2 GM/DL (32-36); Mean Corpuscular Hemoglobin 30 PG (27-34); Mean Corpuscular Volume 96.6 FL (87-102); Mean Platelet Volume 9.8 FL (9.6-12.0); Monocytes # 1.2 10*3/uL (0.11-0.8); Monocytes % 7.5 % (1.7-12.7); Neutrophils # 11.2 10*3/uL (1.4-7.4); Neutrophils % 68.8 % (38.7-73.9); Platelet Count 308 T/CUMM (130-400); Red Blood Count 3.78 MC/CUMM (3.8-5.5); Red Cell Distribution Width 15.1 % (9.3-17.3); White Blood Count 16.2 T/CUMM (4-12)
[2018-09-06] MEDS: IPRATROPIUM 500 MCG/2.5 ML NEB RESP TX SCH ×4 (07:25→19:10)
[2018-09-06] MEDS: AMIODARONE 200 MG TABLET PO SCH (09:31)
[2018-09-06] MEDS: POTASSIUM CHLORIDE 20 MEQ TABLET PO SCH ×2 (09:31→21:32)
[2018-09-06] MEDS: FUROSEMIDE 40 MG TABLET PO SCH ×2 (09:31→21:31)
[2018-09-06] MEDS: APIXABAN 5 MG TABLET PO SCH ×2 (09:31→21:31)
[2018-09-06] MEDS: PANTOPRAZOLE 40 MG TABLET PO SCH (09:31)
[2018-09-06] MEDS: CHOLESTYRAMINE 4 GM PACK PO SCH ×2 (09:32→21:32)
[2018-09-06] MEDS: LOSARTAN 25 MG TABLET PO SCH (09:32)
[2018-09-06] MEDS: DIGOXIN 0.125 MG TABLET PO SCH (12:14)
[2018-09-06] MEDS: traZODone 50 MG TABLET PO SCH (21:32)
[2018-09-07 05:58] LABS: Basophils % 0.3 % (0.0-0.8); Eosinophils # 0.2 10*3/uL (0.0-0.87); Eosinophils % 1.3 % (0.00-10.9); Hematocrit 31.5 VOL% (42.0-52.0); Hemoglobin 10.2 GM/DL (14.0-18.0); Immature Granulocytes % 0.6 %; Immature Granulocytes Absolute 0.08 #; Lymphocytes # 2.6 10*3/uL (1.4-4.0); Lymphocytes % 20.7 % (21.2-54.2); Mean Corpuscular HGB Conc 32.4 GM/DL (32-36); Mean Corpuscular Hemoglobin 31 PG (27-34); Mean Corpuscular Volume 95.2 FL (87-102); Monocytes # 0.9 10*3/uL (0.11-0.8); Neutrophils # 8.8 10*3/uL (1.4-7.4); Neutrophils % 70.1 % (38.7-73.9); Platelet Count 273 T/CUMM (130-400); Red Blood Count 3.31 MC/CUMM (3.8-5.5); Red Cell Distribution Width 14.7 % (9.3-17.3); White Blood Count 12.6 T/CUMM (4-12)
[2018-09-07] MEDS: IPRATROPIUM 500 MCG/2.5 ML NEB RESP TX SCH ×4 (07:00→19:44)
[2018-09-07] MEDS: POTASSIUM CHLORIDE 20 MEQ TABLET PO SCH ×2 (08:04→20:47)
[2018-09-07] MEDS: AMIODARONE 200 MG TABLET PO SCH (08:04)
[2018-09-07] MEDS: PANTOPRAZOLE 40 MG TABLET PO SCH (08:04)
[2018-09-07] MEDS: FUROSEMIDE 40 MG TABLET PO SCH ×2 (08:04→20:47)
[2018-09-07] MEDS: LOSARTAN 25 MG TABLET PO SCH (08:05)
[2018-09-07] MEDS: APIXABAN 5 MG TABLET PO SCH ×2 (08:05→20:48)
[2018-09-07] MEDS: CHOLESTYRAMINE 4 GM PACK PO SCH ×2 (09:06→20:48)
[2018-09-07] MEDS: DIGOXIN 0.125 MG TABLET PO SCH (14:09)
[2018-09-07] MEDS: traZODone 50 MG TABLET PO SCH (20:48)
[2018-09-08] MEDS: IPRATROPIUM 500 MCG/2.5 ML NEB RESP TX SCH ×2 (07:49→11:43)
[2018-09-08] MEDS: POTASSIUM CHLORIDE 20 MEQ TABLET PO SCH (08:19)
[2018-09-08] MEDS: APIXABAN 5 MG TABLET PO SCH (08:19)
[2018-09-08] MEDS: FUROSEMIDE 40 MG TABLET PO SCH (08:19)
[2018-09-08] MEDS: LOSARTAN 25 MG TABLET PO SCH (08:19)
[2018-09-08] MEDS: AMIODARONE 200 MG TABLET PO SCH (08:19)
[2018-09-08] MEDS: PANTOPRAZOLE 40 MG TABLET PO SCH (08:19)
[2018-09-08] MEDS: CHOLESTYRAMINE 4 GM PACK PO SCH (08:23)
[2018-09-08] MEDS ORDERED: TUBERCULIN SKIN TEST 0.1 ML SYRINGE INTRADERM ONE (09:30)
[2018-09-08] MEDS: DIGOXIN 0.125 MG TABLET PO SCH (12:06)
[2018-09-08 12:07] VITALS: BP 161/66
[2018-09-09] MEDS ORDERED: POTASSIUM CHLORIDE 20 MEQ TABLET PO SCH (09:00)
== END 2018-09-08 14:39 ==
LOC: N.ED 09:11 → N.EDINP 09:11 → SUATTDRO 13:38 → N.2W 15:57 → N.5E 18:00
PROVIDERS: ADMIT Internal Medicine Cardiovascular Disease; ATTEND Internal Medicine